=== PATIENT | female | born 1990 | race Caucasian/White ===

== ENCOUNTER → 2017-02-21 | Emergency (ER) | payer OTHER ==
[~2017-02-21] VITALS: Ht 152.4 cm; Wt 93.9 kg
[~2017-02-21] MED LIST: ABILIFY20 MG PO; FIORICET; LAMICTAL200 M1; WELLBUTRIN XL300 MG
== END | disposition home or self-care (01) ==
LOC: ER 20:08
DX: R56.9 Unspecified convulsions (principal); F06.4 Anxiety disorder due to known physiological condition; F31.9 Bipolar disorder, unspecified

== ENCOUNTER 2017-08-18 23:05 | Emergency (ER) | payer OTHER ==
[~2017-08-18] VITALS: Ht 154.9 cm; Wt 102.5 kg
[2017-08-19] MEDS ORDERED: LEVSIN/SL0.125 MG SL (05:28)
[2017-08-19] MEDS ORDERED: INTESTINEX680 M1 PO (05:28)
[2017-08-19] MEDS ORDERED: PEPCID40 MG PO (05:28)
== END 2017-08-19 05:25 | disposition home or self-care (01) ==
LOC: ER 23:05
DX: K29.70 Gastritis, unspecified, without bleeding (principal)

== ENCOUNTER 2018-02-23 14:03 | Emergency (ER) | payer OTHER ==
[~2018-02-23] VITALS: Ht 154.9 cm; Wt 108.0 kg
[~2018-02-23 14:03] MED LIST changes: +INTESTINEX680 M1 PO; +LEVSIN/SL0.125 MG SL; +PEPCID40 MG PO
== END 2018-02-23 18:48 | disposition home or self-care (01) ==
LOC: ER 14:03
DX: K58.9 Irritable bowel syndrome, unspecified (principal)